=== PATIENT | female | born 1960 | race Caucasian/White ===

== ENCOUNTER 2021-12-31 06:29 | Day surgery (SDC) | payer BC, OTHER ==
[~2021-12-31 06:29] MED LIST: Sodium Chloride 0.9% 10 ML Syringe FLUSH PRN; Sodium Chloride 0.9% 10 ML Syringe FLUSH SCH
[2021-12-31] MEDS ORDERED: Midazolam 1 MG/ML 2 ML SDV IV ONE (06:30)
[2021-12-31] MEDS ORDERED: fentaNYL 100 MCG/2 ML SDV IV ONE (06:30)
[2021-12-31] MEDS: Dextrose 5%-0.45% NaCl 1,000 ML IV SCH (07:05)
[2021-12-31] MEDS ORDERED: Midazolam 1 MG/ML 2 ML SDV ONE (08:09)
[2021-12-31] MEDS ORDERED: fentaNYL 100 MCG/2 ML SDV ONE (08:09)
[2021-12-31] MEDS: fentaNYL 100 MCG/2 ML SDV IV ONE ×2 (09:38→09:39)
[2021-12-31] MEDS: Midazolam 1 MG/ML 2 ML SDV IV ONE ×4 (09:40→09:49)
== END 2021-12-31 11:32 | disposition home or self-care (01) ==
LOC: DL.ENDO 06:29
PROVIDERS: ATTEND Internal Medicine Gastroenterology
DX: Z12.11 Encounter for screening for malignant neoplasm of colon (principal); I10 Essential (primary) hypertension; E78.5 Hyperlipidemia, unspecified; R73.9 Hyperglycemia, unspecified; M77.10 Lateral epicondylitis, unspecified elbow; Z98.890 Other specified postprocedural states
CPT/HCPCS: 45378; J2250; J3010; J7042